=== PATIENT | female | born 1990 | race Caucasian/White ===

== ENCOUNTER 2017-09-15 11:00 | Observation (INO) | payer BC ==
[2017-09-15] MEDS ORDERED: NS 1,000 ML IV ONE (11:09)
[2017-09-15 11:26] LABS: PLATELET COUNT 348 10^3/uL (150-400)
[2017-09-15] MEDS ORDERED: ONDANSETRON 4 MG/2 ML VIAL IVP ONE (11:40)
--- NOTE | 2017-09-15 11:40 | EDPHY ---
H & P Time Seen by Provider: 09/15/17 11:09 HPI/ROS: CHIEF COMPLAINT: Pelvic pain, HISTORY OF PRESENT ILLNESS: 27-year-old female LMP 07/22/17 presents with pelvic pain and vaginal spotting. Onset of vaginal spotting yesterday afternoon , associated with gradually increasing left-sided pelvic pain. The pain is now severe and persistent. Associated with multiple episodes of vomiting and dizziness. She was seen by Dr. Orellana, senior analyst developer, in the clinic just prior to arrival. Bedside ultrasound revealed no IUP. Concern for ruptured ectopic . REVIEW OF SYSTEMS: complete 10 point ROS negative except as mentioned in the HPI Past Medical/Surgical History: Denies Social History: Smoking Status: Never smoked Physical Exam: General Appearance: Alert, pleasant, stoic Eyes: Pupils equal and round, no conjunctival pallor or injection ENT, Mouth: Mucous membranes moist Neck: Normal inspection Respiratory: Lungs are clear to auscultation Cardiovascular: Regular rate and rhythm Gastrointestinal: Abdomen is soft, diffuse tenderness, especially in the left lower quadrant, voluntary guarding Neurological: A&O, nonfocal, normal gait Skin: Warm and dry Extremities: Normal inspection Psychiatric: Mood and affect normal Constitutional: Initial Vital Signs Temperature (C) 36.2 C 09/15/17 11:16 Heart Rate 98 09/15/17 11:16 Respiratory Rate 16 09/15/17 11:16 Blood Pressure 109/65 09/15/17 11:16 O2 Sat (%) 96 09/15/17 11:16 O2 Delivery Mode Room Air Allergies/Adverse Reactions: No Known Allergies Allergy (Verified 09/15/17 11:14) Home Medications: Medication Instructions Recorded Hydrocodone/APAP 5/325 [King 1 - 2 tab PO Q4HRS PRN #20 tab 09/15/17 5/325 (*)] Medical Decision Making - Diagnostics Imaging Results: Imaging Impressions Obstetrics Ultrasound 09/15/17 11:09 Impression: Uterine cavity blood products, uterine decidual reaction without intrauterine , and probable left juxta ovarian gestational sac. Sonographic findings are consistent with clinical suspicion of ruptured ectopic . Findings and recommendations discussed with PELON HILL at 12:11 PM hour, 09/15/2017. ED Course/Re-evaluation: Clinical presentation consistent with ruptured ectopic . Blood pressure is normal, she is slightly tachycardic with a heart rate of 100. Morphine and Zofran IV given for pain and nausea control. IV NS given for tachycardia, likely secondary to blood loss. Stat pelvic ultrasound reveals no IUP. Quantitative BHCG 2373. Hct 38. Results d/w pt and ; c/w ruptured ectopic . Jig Grinder paged. Consulted Dr. Villalba and Dr. Platt, will see in ED, plan to take to OR. Pt remained stable throughout her ED stay. Critical care time 35 minutes by me exclusive of unbundled procedures. Time spent in ordering tests, analysis of tests, consultations and time spent directly with pt. Organs at risk: all, acute hemorrhage Differential Diagnosis: Differential diagnosis includes though it is not limited to ectopic , ovarian cyst, ovarian torsion, PID, UTI, appendicitis. - Data Points Laboratory Results: Laboratory Results 09/15/17 11:15 09/15/17 11:15 09/15/17 09/15/17 09/15/17 11:15 11:15 11:15 WBC RBC Hgb Hct MCV MCH MCHC RDW Plt Count MPV Neut % (Auto) Lymph % (Auto) Bourbon % (Auto) Eos % (Auto) Baso % (Auto) Nucleat RBC Rel Count Absolute Neuts (auto) Absolute Lymphs (auto) Absolute Monos (auto) Absolute Eos (auto) Absolute Basos (auto) Absolute Nucleated RBC Immature Gran % Immature Gran # Sodium 140 mEq/L mEq/L (135-145) Potassium 4.1 mEq/L mEq/L (3.5-5.2) Chloride 105 mEq/L mEq/L (97-110) Carbon Dioxide 19 mEq/l L mEq/l (22-31) Anion Gap 16 mEq/L mEq/L (8-16) BUN 11 mg/dL mg/dL (7-23) Creatinine 0.8 mg/dL mg/dL (0.6-1.0) Estimated GFR > 60 Glucose 164 mg/dL H mg/dL (70-100) Calcium 8.9 mg/dL mg/dL (8.5-10.4) Beta HCG, Qual POSITIVE Beta HCG, Quant 2373.60 mIU/mL H mIU/mL (0.00-4.83) Patient ABO/Rh A POSITIVE Antibody Screen NEGATIVE 09/15/17 11:15 WBC 21.61 10^3/uL H 10^3/uL (3.80-9.50) RBC 4.10 10^6/uL L 10^6/uL (4.18-5.33) Hgb 13.2 g/dL g/dL (12.6-16.3) Hct 38.0 % % (38.0-47.0) MCV 92.7 fL fL (81.5-99.8) MCH 32.2 pg pg (27.9-34.1) MCHC 34.7 g/dL g/dL (32.4-36.7) RDW 12.0 % % (11.5-15.2) Plt Count 348 10^3/uL 10^3/uL (150-400) MPV 9.8 fL fL (8.7-11.7) Neut % (Auto) 86.4 % H % (39.3-74.2) Lymph % (Auto) 9.4 % L % (15.0-45.0) Bourbon % (Auto) 3.3 % L % (4.5-13.0) Eos % (Auto) 0.2 % L % (0.6-7.6) Baso % (Auto) 0.2 % L % (0.3-1.7) Nucleat RBC Rel Count 0.0 % % (0.0-0.2) Absolute Neuts (auto) 18.67 10^3/uL H 10^3/uL (1.70-6.50) Absolute Lymphs (auto) 2.03 10^3/uL 10^3/uL (1.00-3.00) Absolute Monos (auto) 0.71 10^3/uL 10^3/uL (0.30-0.80) Absolute Eos (auto) 0.04 10^3/uL 10^3/uL (0.03-0.40) Absolute Basos (auto) 0.05 10^3/uL 10^3/uL (0.02-0.10) Absolute Nucleated RBC 0.00 10^3/uL 10^3/uL (0-0.01) Immature Gran % 0.5 % % (0.0-1.1) Immature Gran # 0.11 10^3/uL H 10^3/uL (0.00-0.10) Sodium Potassium Chloride Carbon Dioxide Anion Gap BUN Creatinine Estimated GFR Glucose Calcium Beta HCG, Qual Beta HCG, Quant Patient ABO/Rh Antibody Screen Medications Given: Discontinued Medications Hydrocodone Bitart/Acetaminophen (King 5/325) 1 - 2 tab PO Q4HRS PRN PRN Reason: PACU, Pain Moderate Stop: 09/15/17 16:06 Last Admin: 09/15/17 16:56 Dose: 1 tab Bupivacaine HCl/Epinephrine Bitart (Bupivacaine/Epi) Confirm Administered Dose 30 ml .ROUTE .STK-MED ONE Stop: 09/15/17 13:27 Last Admin: 09/15/17 14:00 Dose: 8 ml Fentanyl (Sublimaze) 25 - 100 mcg IVP Q5M PRN PRN Reason: PACU, IMMEDIATE Pain control Stop: 09/15/17 16:06 Last Admin: 09/15/17 16:45 Dose: 25 mcg Sodium Chloride (Ns) 1,000 mls @ 0 mls/hr IV ONCE ONE; Wide Open PRN Reason: Protocol Stop: 09/15/17 11:10 Last Admin: 09/15/17 11:20 Dose: 1,000 mls Lactated Ringer's (Lr) 1,000 mls @ 0 mls/hr IV ONCE ONE PRN Reason: KVO Stop: 09/15/17 13:28 Last Admin: 09/15/17 13:44 Dose: 1,000 mls Cefazolin Sodium (Cefazolin Syringe) 2 gm in 20 mls @ 200 mls/hr IVP ONCALL ONE PRN Reason: Protocol Stop: 09/15/17 14:04 Last Admin: 09/15/17 14:21 Dose: 20 mls Midazolam HCl (Versed) 2 mg IVP ONCE ONE Stop: 09/15/17 13:50 Last Admin: 09/15/17 14:05 Dose: 2 mg Morphine Sulfate (Morphine) 6 mg IVP EDNOW ONE Stop: 09/15/17 11:41 Last Admin: 09/15/17 11:48 Dose: 6 mg Morphine Sulfate (Morphine) 6 mg IVP EDNOW ONE Stop: 09/15/17 13:08 Last Admin: 09/15/17 13:18 Dose: 6 mg Ondansetron HCl (Zofran) 4 mg IVP EDNOW ONE Stop: 09/15/17 11:41 Last Admin: 09/15/17 11:48 Dose: 4 mg Departure - Departure Disposition: To OP Cath/Surgery Clinical Impression: Ruptured left tubal ectopic causing hemoperitoneum Condition: Good
[2017-09-15] MEDS ORDERED: BUPIVACAINE/EPI 0.5% 30 ML SDV ONE (13:26)
[2017-09-15] MEDS ORDERED: LR 1,000 ML IV ONE (13:27)
--- NOTE | 2017-09-15 13:34 | PDANEPAE ---
ANE History of Present Illness 27 year old female for presumed ruptured ectopic . ANE Past Medical History - Cardiovascular History Hx Hypertension: No Hx Arrhythmias: No Hx Chest Pain: No Hx Coronary Artery / Peripheral Vascular Disease: No Hx CHF / Valvular Disease: No Hx Palpitations: No - Pulmonary History Hx COPD: No Hx Asthma/Reactive Airway Disease: No Hx Recent Upper Respiratory Infection: No Hx Oxygen in Use at Home: No Hx Sleep Apnea: No - Endocrine History Hx Diabetes: No Hypothyroid: No Hyperthyroid: No Obesity: yes - Renal History Hx Renal Disorders: No - Liver History Hx Hepatic Disorders: No - Neurological & Psychiatric Hx Hx Neurological and Psychiatric Disorders: No - Cancer History Hx Cancer: No - Congenital Disorder History Hx Congenital Disorders: No - GI History Hx Gastrointestinal Disorders: No ANE Review of Systems Review of systems is: negative Review of Systems: - Exercise capacity Exercise capacity: >=4 METS ANE Patient History - Allergies Allergies/Adverse Reactions: No Known Allergies Allergy (Verified 09/15/17 11:14) - Home Medications Home medications: home medication list seen and reviewed Home Medications: NK [No Known Home Meds] 09/15/17 [Last Taken Unknown] - NPO status NPO Since - Solids (Date): 09/15/17 NPO Since - Solids (Time): 09:30 - Anes Hx Anes Hx: no prior problems - Smoking Hx Smoking Status: Never smoked Marijuana use: No - Alcohol Use Alcohol Use: None - Family Anes Hx Family Anes Hx: neg - N/A ANE Labs/Vital Signs - Labs Result Diagrams: 09/15/17 11:15 09/15/17 11:15 - Vital Signs Vital Signs: reviewed preoperatively; see RN documention for details Blood Pressure: 106/74 Heart Rate: 109 Respiratory Rate: 16 O2 Sat (%): 96 Height: 157.48 cm Weight: 95.254 kg ANE Physical Exam - Airway Neck exam: FROM Mallampati Score: Class 2 Mouth exam: normal dental/mouth exam - Pulmonary Pulmonary: no respiratory distress - Cardiovascular Cardiovascular: regular rate and rhythym - ASA Status ASA Status: II, E ANE Anesthesia Plan Anesthesia Plan: general endotracheal anesthesia
[2017-09-15] MEDS ORDERED: MIDAZOLAM 2 MG/2 ML VIAL ONE (13:44)
[2017-09-15] MEDS ORDERED: MIDAZOLAM 2 MG/2 ML VIAL IVP ONE (13:49)
[2017-09-15 13:50] VITALS: PULSE 109
[2017-09-15] MEDS ORDERED: SUCCINYLCHOLINE CHLORIDE 200 MG/10 ML SYR IVP ONE (13:51)
[2017-09-15] MEDS ORDERED: ROCURONIUM 50 MG/5 ML VIAL ONE (13:51)
[2017-09-15] MEDS ORDERED: PROPOFOL 200 MG/20 ML VIAL ONE (13:51)
[2017-09-15] MEDS ORDERED: LIDOCAINE 2% 5 ML SDV ONE (13:51)
[2017-09-15] MEDS ORDERED: fentaNYL 100 MCG/2 ML INJ ONE ×2 (13:51→16:42)
[2017-09-15] MEDS ORDERED: DEXAMETHASONE 4 MG/ML VIAL ONE (13:52)
[2017-09-15] MEDS ORDERED: ONDANSETRON 4 MG/2 ML VIAL ONE (13:52)
[2017-09-15] MEDS ORDERED: PROPOFOL/EMULSION 500 MG/50 ML BOTTLE IV ONE (13:54)
[2017-09-15] MEDS ORDERED: ceFAZolin 2 GM/SWFI 20 ML SYR IVP ONE (13:55)
[2017-09-15] MEDS ORDERED: ceFAZolin 2 GM/SWFI 2 GM/20 ML SYR IVP ONE (13:59)
--- NOTE | 2017-09-15 14:13 | GHP ---
[f rep st] PREOP HISTORY AND PHYSICAL DATE OF ADMISSION: 09/15/2017 The patient is getting prepped for surgery on 09/15/2017 on the Gynecology Service. HISTORY: Upon admission, the patient is a 27-year-old, G1, P0, who has been diagnosed with an ectopi c , likely ruptured with acute pain upon admission to the emergency room. The patient is a patient of Dr. Sal at [facility] and presented to her office today reporting left lower nunu drant pain that started yesterday driving home from work. The patient states the pain got less throu gh the night, but she woke up with pain and has had nausea and vomiting today with the pain. She als o began spotting earlier this week. She, by sure last menstrual period, feels that she is 7 weeks 6 days. Ultrasound performed here in the emergency room shows no intrauterine with a ring-li ke structure in the left adnexa and free fluid consistent with blood in the pelvis. The patient had an HCG level done in the emergency room that shows 2300. Maternal blood type A positive with negativ e antibody screen. The patient has been advised of the concern for bleeding from a left ectopic, and we will go to the operating room with laparoscopy for management and removal of the left ectopic. T he patient is counseled as to the risks and benefits and the consent form signed at bedside. PAST MEDICAL HISTORY: Negative. PAST SURGICAL HISTORY: Breast reduction age 15 with keloid scarring. Also a skin biopsy in her righ t lower abdomen that has a long scar. This also was done as a child. PAST OBSTETRIC HISTORY: First with no complications thus far. ALLERGIES: No known drug allergies. CURRENT MEDICATIONS: Only vitamins. SOCIAL HISTORY: Patient is a nonsmoker. No alcohol or marijuana use. The patient is , and h er supportive is with her. LABORATORY VALUES: The patient had a CBC performed showing hematocrit 38%, and metabolic panel which was normal. PHYSICAL EXAM: GENERAL: The patient is a well-developed, overweight white female in moderate distre ss and has received morphine in the emergency room. VITAL SIGNS: The patient is afebrile, pulse in the 100s. Blood pressure is normal. See nursing documentation for full details. LUNGS: Clear to a uscultation bilaterally. CARDIOVASCULAR: Regular rate and rhythm. PELVIC: Not performed. EXTREMI TIES: Nontender with no edema. ASSESSMENT: Left ectopic with blood in the pelvis. The patient is hemodynamically stable; however, will proceed to the operating room. PLAN: A laparoscopic left salpingectomy for ruptured ectopic. /[id number]/MODL
[2017-09-15] MEDS ORDERED: PHENYLEPHRINE HCL 100 MCG/ML SYR ONE (14:21)
[2017-09-15] MEDS ORDERED: PROMETHAZINE HCL 25 MG/ML INJ IVP PRN (15:05)
[2017-09-15] MEDS ORDERED: epHEDrine SULFATE 10 MG/ML SYR IVP PRN (15:05)
[2017-09-15] MEDS ORDERED: LR 500 ML IV PRN (15:05)
[2017-09-15] MEDS ORDERED: NALOXONE HCL 0.4 MG/ML INJ IVP PRN (15:05)
[2017-09-15] MEDS ORDERED: fentaNYL 100 MCG/2 ML INJ IVP PRN (15:05)
[2017-09-15] MEDS ORDERED: PHENYLEPHRINE HCL 100 MCG/ML SYR IVP PRN (15:05)
[2017-09-15] MEDS ORDERED: ONDANSETRON 4 MG/2 ML VIAL IVP PRN (15:05)
[2017-09-15] MEDS ORDERED: HYDROCODONE/APAP 5/325 TAB PO PRN (15:05)
[2017-09-15] MEDS ORDERED: SUGAMMADEX SODIUM 200 MG/2 ML VIAL IVP ONE (15:27)
[2017-09-15] MEDS ORDERED: KETOROLAC 30 MG/1 ML SDV ONE (15:44)
--- NOTE | 2017-09-15 16:03 | POSTOPPROG ---
Post Op Note Date of Operation: 09/15/17 Surgeon: Roberta Villatoro Anesthesia: GET(General Endotracheal) Pre-op Diagnosis: left ectopic Post-op Diagnosis: left ectopic Indication: acute pain at 7+ wks gest, left ectopic and hemoperit on u/s Procedure: LSC left salpingectomy Findings: 900 ml hemoperitoneum, ruptured left tube, nl ut and ov bilat and right tu Inf/Abcess present in the surg proc area at time of surgery?: No Depth: Organ Space EBL: Minimal (30 ml estimated) Total fluids administered: 1500 Specimen(s): left tube and ectopic
[2017-09-15] MEDS ORDERED: HYDROCODONE/APAP 5/325 TAB ONE (16:42)
--- NOTE | 2017-09-15 16:47 | POSTANESTH ---
Post Anesthetic Evaluation Cardiovascular Status: Normal, Stable, Similar to Pre-Op Cond Respiratory Status: Normal, Stable, Similar to Pre-op Cond. Level of Consciousness/Mental Status: Can Participate in Eval, Alert and Oriented Pain Control: Adequate, Prn Tx Ordered Nausea/Vomiting Control: Adequate, Prn Tx Ordered Complications Possibly Related to Anesthesia: None Noted
[2017-09-15 17:21] VITALS: BP 103/62; O2SAT 94
[2017-09-15 17:24] VITALS: TEMP 97.5
[2017-09-15 18:30] VITALS: RESP 12
== END 2017-09-15 18:30 | disposition home or self-care (01) ==
PROVIDERS: ADMIT Obstetrics & Gynecology; ATTEND Obstetrics & Gynecology
PROC: 0UT64ZZ Resection of Left Fallopian Tube, Percutaneous Endoscopic Approach (ICD-10-PCS; principal; 2017-09-15 14:45)
PROC: 10D28ZZ Extraction of Products of Conception, Ectopic, Via Natural or Artificial Opening Endoscopic (ICD-10-PCS; principal; 2017-09-15 14:45)
DX: O00.102 Left tubal pregnancy without intrauterine pregnancy (principal)
CPT/HCPCS: 96374; J0330; J0690; J1100; J1885; J2250; J2270; J2370; J2405; J2704; J3010

== ENCOUNTER 2017-12-22 06:15 | Day surgery (SDC) | payer BC ==
--- NOTE | 2017-12-21 22:32 | GHP ---
[f rep st] PREOP HISTORY AND PHYSICAL Date of Planned Procedure: 12/22/2017. Planned Procedure: Suction dilation and curettage for missed . INDICATIONS: The patient is a 27-year-old, 2, para 0-0-1-0 who has been diagnosed with a missed . The patient had a laparoscopy and salpingectomy for a left ruptured ectopic in September of 2017. Postoperative course was uncomplicated. The patient was trying to get , so she was having unprotected sex. She had a positive test in early 11/2017, and because of a history of a recent ectopic we followed her labs closely because they were not rising quite as expected, however, an ultrasound was performed on December 02, which showed a small gestational sac with no yolk sac or pole. We will continue to follow her HCG levels which did begin rising more appropriately. However, an ultrasound performed on December 14 showed a gestational sac with a yolk sac and a pole, crown-rump length of 6 weeks with no cardiac activity. An additional HCG was drawn which was 10,000. Because of the appropriately rising HCGs but lack of activity, presumptive diagnosis of missed was made and patient was counseled on options and has elected to proceed with a suction dilation and curettage. Risks and benefits have been reviewed with the patient. We will perform an ultrasound prior to the procedure to ensure that there is no cardiac activity, and this is not just size less than dates. The patient will be consented day of surgery. PAST MEDICAL HISTORY: Significant for obesity. MEDICATIONS: vitamins. PAST SURGICAL HISTORY: Left salpingectomy, laparoscopic for ruptured ectopic. ALLERGIES: No known drug allergies. SOCIAL HISTORY: Patient is . She denies tobacco or drug use. She drinks 1 alcoholic beverage a week. FAMILY MEDICAL HISTORY: Noncontributory. MANAGER FRONT HISTORY: Menarche age 13. Periods every 23 days, lasting 4 days. She is a 2, para 0-0-1-0. She had a ruptured ectopic in 09/2017. Current is a presumptive missed . She denies any history of any abnormal Pap smears or sexually transmitted diseases. PHYSICAL EXAMINATION: VITAL SIGNS: On physical exam the patient's vital signs are stable. Her weight is 218. Her blood pressure is 116/72. GENERAL APPEARANCE: Alert and oriented x3. CARDIOVASCULAR: Heart rate is regular. RESPIRATORY: Lungs are clear to auscultation bilaterally. ABDOMEN: Obese, soft, nondistended, nontender. EXTREMITIES: Reveal no calf tenderness or edema. PELVIC: Exam was deferred. PSYCH: Appropriate affect. MUSCULOSKELETAL: Grossly intact. NEUROMUSCULAR: Grossly intact. Blood type is A positive. REVIEW OF SYSTEMS: 10-point review of systems is negative. ASSESSMENT AND PLAN: A 27-year-old 2, para 0-0-1-0 with a diagnosis of missed . Last menstrual period of 10/15/2017 with a positive test on 11/13/2017 with a diagnosis of missed . The patient will confirm a missed prior to performing procedure, and the patient will have a suction, dilation, and curettage, and patient will sign consent the day of surgery. /[id number]/MODL MTDD
[2017-12-22] MEDS ORDERED: PROPOFOL/EMULSION 500 MG/50 ML BOTTLE IV ONE (08:01)
[2017-12-22] MEDS ORDERED: fentaNYL 100 MCG/2 ML INJ ONE (08:01)
[2017-12-22] MEDS ORDERED: ONDANSETRON 4 MG/2 ML VIAL ONE (08:02)
[2017-12-22] MEDS ORDERED: DEXAMETHASONE 4 MG/ML VIAL ONE (08:02)
[2017-12-22] MEDS ORDERED: METOCLOPRAMIDE 10 MG/2 ML VIAL ONE (08:02)
[2017-12-22] MEDS ORDERED: DOXYCYCLINE HYCLATE 100 MG CAP/TAB PO ONE ×2 (08:11→10:30)
[2017-12-22] MEDS ORDERED: LR 1,000 ML IV ONE (08:11)
[2017-12-22] MEDS ORDERED: MIDAZOLAM 2 MG/2 ML VIAL ONE (08:14)
--- NOTE | 2017-12-22 08:22 | PDANEPAE ---
ANE History of Present Illness Blighted ovum. ANE Past Medical History - Cardiovascular History Hx Hypertension: No Hx Arrhythmias: No Hx Chest Pain: No Hx Coronary Artery / Peripheral Vascular Disease: No Hx CHF / Valvular Disease: No Hx Palpitations: No - Pulmonary History Hx COPD: No Hx Asthma/Reactive Airway Disease: No Hx Recent Upper Respiratory Infection: No Hx Oxygen in Use at Home: No Hx Sleep Apnea: Yes Sleep Apnea Screening Result - Last Documented: Negative - Neurologic History Hx Cerebrovascular Accident: No Hx Seizures: No Hx Dementia: No - Endocrine History Hx Diabetes: No Obesity: moderate - Renal History Hx Renal Disorders: No - Liver History Hx Hepatic Disorders: No - Neurological & Psychiatric Hx Hx Neurological and Psychiatric Disorders: No - Cancer History Hx Cancer: No - Congenital Disorder History Hx Congenital Disorders: No - GI History Hx Gastrointestinal Disorders: No - Chronic Pain History Chronic Pain: No - Surgical History Prior Surgeries: Breast reduction, ruptured ectopic. ANE Review of Systems Review of Systems: - Exercise capacity Exercise capacity: >=4 METS ANE Patient History - Allergies Allergies/Adverse Reactions: No Known Allergies Allergy (Verified 09/15/17 11:14) - NPO status NPO Since - Liquids (Date): 12/21/17 NPO Since - Liquids (Time): 21:00 NPO Since - Solids (Date): 12/22/17 NPO Since - Solids (Time): 20:30 - Anes Hx Anes Hx: no prior problems - Smoking Hx Smoking Status: Never smoked - Alcohol Use Alcohol Use: Rarely - Family Anes Hx Family Anes Hx: neg - N/A Family Hx Anesthesia Complications: NA ANE Labs/Vital Signs - Vital Signs Blood Pressure: 130/68 Heart Rate: 88 Respiratory Rate: 18 O2 Sat (%): 97 Height: 157.48 cm Weight: 97.522 kg ANE Physical Exam - Airway Neck exam: FROM Mallampati Score: Class 2 Mouth exam: normal dental/mouth exam - Pulmonary Pulmonary: no respiratory distress - Cardiovascular Cardiovascular: regular rate and rhythym - ASA Status ASA Status: I ANE Anesthesia Plan Anesthesia Plan: GA with mask
[2017-12-22] MEDS ORDERED: MISOPROSTOL 200 MCG TAB ONE (08:23)
[2017-12-22] MEDS ORDERED: LIDOCAINE 2% 5 ML SDV ONE (09:24)
[2017-12-22] MEDS ORDERED: KETOROLAC 30 MG/1 ML SDV ONE (09:24)
[2017-12-22] MEDS ORDERED: HYDROCODONE/APAP 5/325 TAB PO PRN (09:47)
[2017-12-22] MEDS ORDERED: ONDANSETRON 4 MG/2 ML VIAL IVP PRN (09:47)
[2017-12-22] MEDS ORDERED: NALOXONE HCL 0.4 MG/ML INJ IVP PRN (09:47)
[2017-12-22] MEDS ORDERED: fentaNYL 100 MCG/2 ML INJ IVP PRN (09:47)
[2017-12-22] MEDS ORDERED: LR 500 ML IV PRN (09:47)
[2017-12-22 10:35] VITALS: BP 112/77
--- NOTE | 2017-12-22 16:58 | GOP ---
[f rep st] OPERATIVE REPORT DATE OF OPERATION: 12/22/2017 SURGEON: Beena Cuevas, ANESTHESIA: Sedation. ANESTHESIOLOGIST: Flip La MD PREOPERATIVE DIAGNOSIS: Missed . POSTOPERATIVE DIAGNOSIS: Missed . PROCEDURE PERFORMED: Suction, dilation and curettage. FINDINGS: Exam under anesthesia, mobile, slightly enlarged mid position uterus with no adnexal carie s. SPECIMENS: Products of conception. ESTIMATED BLOOD LOSS: 100 cc. INDICATIONS: Patient is a 27-year-old 2, para 0-0-1-0 who had a positive test on 0 11/13/2017. She had a history of a recent ectopic , so she had early serial labs and ultraso und which were initially not rising appropriately, but then did, however, an ultrasound showed a blig hted ovum versus an early IUP with no cardiac activity. Management options were reviewed with the deepali conteh. The patient elected to proceed with a suction, dilation and curettage. For reassurance, she did request a repeat ultrasound be done today which did confirm a missed . Risks and benefit s of the procedure were reviewed with the patient and the patient was properly consented. DESCRIPTION OF PROCEDURE: Patient was taken to the operating room with intravenous fluids in place. She was then placed on the operating room table in the dorsal supine position where anesthesia was o btained. She was then repositioned into the dorsal lithotomy position with the Yellofin stirrups and prepped and draped in the normal sterile fashion. Exam under anesthesia revealed a mobile, antevert ed uterus with no adnexal masses. A speculum was then placed in the patient's vagina. An Allis clam p was used to grasp the anterior lip of the cervix. The cervix was then carefully dilated to allow f or the introduction of an 8 curved suction curette. A circumferential curettage was performed. A mo derate amount of products of conception were noted. A sharp metal curette was then introduced, and a circumferential curettage was performed until a gritty texture was noted. The suction curette was t hen reintroduced one additional time. No additional products of conception were noted. A transvagin al ultrasound was performed which showed a thin endometrial stripe. The patient was noted to have a small amount of additional bleeding, so 1000 mcg of Cytotec was placed per rectum and bleeding was th en noted to be minimal. Instruments were then removed from the patient's vagina. Sponge, lap, and n eedle count were correct x2. Patient was transported to the recovery room in stable condition. /[id number]/MODL
== END 2017-12-22 10:50 | disposition home or self-care (01) ==
LOC: FSGY 06:15 → FOBOP 10:50
PROVIDERS: ATTEND Obstetrics & Gynecology
PROC: 10D17ZZ Extraction of Products of Conception, Retained, Via Natural or Artificial Opening (ICD-10-PCS; principal; 2017-12-22)
DX: O02.1 Missed abortion (principal)
CPT/HCPCS: J1100; J1885; J2250; J2405; J2704; J2765; J3010